=== PATIENT | female | born 1975 ===

== ENCOUNTER 2016-11-30 14:02 | Inpatient (IN) | payer MEDICAID, OTHER ==
[2016-11-30 16:05] VITALS: BMI 36.8
[2016-11-30] MEDS ORDERED: DINOPROSTONE 10 MG SUP VG ONE ×2 (17:25→21:12)
--- NOTE | 2016-11-30 17:35 | PDOC36 ---
Provider Note Note: cc: Admission H&P HPI: 41 y.o. year old BALDEMAR 11/29/2016, by Last Menstrual Period at 40w1d here for IOL for AMA. REVIEW OF SYSTEMS GENERAL:~ No fever or headache EYES:~ No double or blurry vision. CARDIOVASCULAR:~ No chest pain. RESPIRATORY:~ No severe shortness of breath or cough. GASTROINTESTINAL:~ No nausea or vomiting or right upper quadrant pain.~ PSYCHIATRIC:~ No anxiety or depression. PROBLEMS Term AMA Anemia Obesity OB HISTORY #: 1, Date: 11/29/06, Sex: Male, Weight: 2.722 kg (6 lb), GA: 40w0d, Delivery: Vaginal, Spontaneous Delivery, Apgar1: None, Apgar5: None, Living: Yes, Comments : None #: 2, Date: 08/2010, Sex: Unknown, Weight: None, GA: 4w0d, Delivery: Spontaneous , Apgar1: None, Apgar5: None, Living: Demise, Comments : D&C #: 3, Date: 04/21/11, Sex: Female, Weight: 3.175 kg (7 lb), GA: 40w0d, Delivery : Vaginal, Spontaneous Delivery, Apgar1: None, Apgar5: None, Living: Yes, Comments: DFOB #: 4, Date: 06/22/12, Sex: Male, Weight: 3.175 kg (7 lb), GA: 40w0d, Delivery: Vaginal, Spontaneous Delivery, Apgar1: None, Apgar5: None, Living: Yes, Comments : None #: 5, Current PSH No past surgical history on file. SOC HX Reports that she has never smoked. She has never used smokeless tobacco. She reports that she does not drink alcohol or use illicit drugs. ALL No Known Allergies MEDICATIONS ~ Calcium Carb-Cholecalciferol (CALCIUM-VITAMIN D) 600-400 MG-UNIT tablet, Calcium-Vitamin D (calcium-vitamin D) 600 mg-400 units, oral tablet. 1 tablet(s ) DAILY #100, 2 Refills. GUSTAVO WEIR. Chronic, Disp: , Rfl:~ PHYSICAL EXAMINATION VITAL SIGNS:~ AFVSS Estimated body mass index is 36.86 ~ Weight as of 11/27/16: 77.5 kg (170 lb 13.7 oz). Total weight gain is -4.148 kg (-9 lb 2.3 oz) FHT:~ 150s moderate variability with accels and late decels category II [place]:~ Intermittent contractions SVE:~ 1-2/Thick/High GENERAL:~ No distress CARDIOVASCULAR:~ Regular rate and rhythm, no murmur, JVD or pedal edema. RESPIRATORY:~ Clear to auscultation bilaterally, respiratory effort is nonlabored at rest. GASTROINTESTINAL:~ Gravid no fundal tenderness NEUROLOGIC:~ Deep tendon reflexes are 2+ in the knees.~ Cranial nerves II-XII are grossly intact. PSYCHIATRIC:~ Alert and oriented x3, judgement and memory is intact, mood is pleasant. LABS & STUDIES B+ Antibody- Rubella Immune Hep B- HIV- GC/Chlamydia- Trep- Hgb 11.5 GBS Negative ULTRASOUNDS 24 wk - c/w lmp. male. normal survey. post placenta, no previa. grade 1, subj normal fluid. 30 wk - post placenta w/o previa. growth nl. amniotic fluid nl. detailed anatomy nl but incomplete due to limitation of gestational age and position. patient declined additional testing. ASSESSMENT 41 y.o. year old BALDEMAR 11/29/2016, by Last Menstrual Period at 40w1d with AMA PLAN AMA: Admit for IOL, SVE is 1-2/thick/high, will start cervidil induction tonight and follow closely. Alejandro Kincaid MD MPH
[2016-11-30] MEDS ORDERED: IV START KIT ONE (18:05)
[2016-11-30] MEDS ORDERED: LACTATED RINGERS 1,000 ML ONE (18:05)
[2016-11-30 18:46] LABS: HEMATOCRIT 32.2 % (37.0-47.0); HEMOGLOBIN 10.6 gm/l (12.0-16.0); MEAN CELL VOLUME 83.9 fl (81.0-99.0); MEAN CORPUSCULAR HEMOGLOBIN 27.6 pg (27.0-31.0); MEAN CORPUSCULAR HGB CONC 32.9 g/dl (33.0-37.0); RED CELL DISTRIBUTION WIDTH 13.9 % (11.5-14.5)
[2016-11-30] MEDS ORDERED: OXYTOCIN 10 UNITS/ML VIAL ONE (21:22)
[2016-11-30] MEDS ORDERED: LIDOCAINE Viscous 2% 15 ML UDCUP ONE (21:22)
[2016-11-30] MEDS ORDERED: LIDOCAINE 1% (PRES FREE) 30 ML VIAL ONE (21:22)
[2016-11-30] MEDS ORDERED: MINERAL OIL 25 ML BOT ONE (21:22)
[2016-11-30] MEDS ORDERED: PUMP TUBING ONE (21:23)
[2016-11-30] MEDS ORDERED: OXYTOCIN IN LR 500 ML IV ONE ×2 (21:23→21:50)
[2016-12-01] MEDS: LACTATED RINGERS 1,000 ML IV PRN ×3 (00:32→05:20)
[2016-12-01] MEDS: FENTANYL 100 MCG/2 ML VIAL IV PRN ×2 (01:41→04:27)
[2016-12-01] MEDS ORDERED: FENTANYL/ROPIVACAINE EPIDURAL 250 ML EP ONE (06:57)
[2016-12-01] MEDS ORDERED: EPIDURAL PUMP SET ONE (06:57)
[2016-12-01] MEDS ORDERED: EPIDURAL PROCEDURE TRAY ONE (07:15)
[2016-12-01] MEDS ORDERED: EPHEDRINE SULFATE 50 MG/ML 1ML VIAL IV PRN (07:40)
[2016-12-01] MEDS ORDERED: NALOXONE HCL 0.4 MG/ML VIAL IV PRN (07:40)
[2016-12-01] MEDS ORDERED: DIPHENHYDRAMINE HCL 50 MG/1 ML VIAL IV PRN (07:40)
[2016-12-01] MEDS ORDERED: ONDANSETRON 4 MG/2ML 2 ML VIAL IV PRN (07:40)
[2016-12-01] MEDS ORDERED: LACTATED RINGERS 500 ML IV PRN (07:40)
[2016-12-01] MEDS ORDERED: METOCLOPRAMIDE HCL 5 MG/ML 2ML VIAL IV PRN (07:40)
[2016-12-01] MEDS ORDERED: SODIUM CHLORIDE 0.9% 500 ML IV PRN (07:40)
[2016-12-01] MEDS ORDERED: NALBUPHINE HCL 20 MG/ML AMP IV PRN (07:40)
[2016-12-01] MEDS ORDERED: LACTATED RINGERS 1,000 ML IV SCH (07:40)
[2016-12-01] MEDS ORDERED: BENZOCAINE/MENTHOL 60 APPLIC/BOT TP PRN (08:14)
[2016-12-01] MEDS ORDERED: HYDROCODONE/ACETAMINOPHEN 5/325MG TABLET PO PRN (08:14)
[2016-12-01] MEDS ORDERED: MAGNESIUM HYDROXIDE 30 ML UDCUP PO PRN (08:14)
[2016-12-01] MEDS ORDERED: CALCIUM CARBONATE 500 MG TAB.CHEW PO PRN (08:14)
[2016-12-01] MEDS ORDERED: DOCUSATE SODIUM 100 MG CAPSULE PO PRN (08:14)
[2016-12-01] MEDS ORDERED: LANOLIN 50 APPLIC/7G TUBE TP PRN (08:14)
[2016-12-01] MEDS ORDERED: FENTANYL/ROPIVACAINE EPIDURAL 250 ML EP SCH (08:19)
--- NOTE | 2016-12-01 09:15 | PCMDEL ---
Delivery Note - Labor 1st stage (hr/min):: [id number] 2nd stage (hr/min):: 4 min 3rd stage (hr/min):: 7 min Total (hr/min):: [id number] Pushed (hr/min):: 4 min - Delivery Delivery (Date): 12/01/16 Delivery (Time): 07:41 Infant Gender: Male Length: 52.07 cm Presentation: Cephalic Position: OA Umbilical Cord: 3 Vessel Delayed Cord Clamping:: 2-3 min Placenta:: wnl EBL:: 150 Perineum:: 1st degree preineal. Suture:: 4-0 vicryl, in usual fashion. Epidural anesthesia was sufficient. Anesthesia/Meds:: epidural Length ROM:: 0 min, delivered in sac. Comments:: IOL for AMA, cervidil only. Was getting epidural when felt urge to push. Laid back down and was complete. Baby delivered encall, inside amniotic sac with clear fluid. No complications.
[2016-12-01] MEDS: IBUPROFEN 600 MG TABLET PO PRN ×2 (14:53→20:47)
[2016-12-02] MEDS: IBUPROFEN 600 MG TABLET PO PRN ×2 (02:46→09:02)
[2016-12-02 06:44] LABS: HEMOGLOBIN 9.1 gm/l (12.0-16.0)
[2016-12-02 08:14] VITALS: BP 86/52
--- NOTE | 2016-12-02 12:18 | PDOC44 ---
- Subjective Day: 1 doing well. Reports Pain Tolerable, Reports , Reports Lochia Light, Reports Tolerating Regular Diet, Denies Nausea, Denies Fever - Objective Temp Pulse Resp BP Pulse Ox 98.3 F 80 16 86/52 12/02/16 07:55 12/02/16 07:55 12/02/16 07:55 12/02/16 07:55 Lab Results 12/02/16 06:10 Hgb 9.1 L Hct 28.0 L Current Medications Generic Name Dose Route Start Last Admin Trade Name Freq PRN Reason Stop Dose Admin Acetaminophen/Hydrocodone Bitart 1 - 2 tab 12/01/16 08:14 [place] 5/325 PO Q4H PRN Pain (Moderate) Benzocaine/Menthol 1 applic 12/01/16 08:14 Dermoplast TP PRN PRN Patient Comfort Calcium Carbonate/Glycine 500 - 1,000 mg 12/01/16 08:14 Tums PO BID PRN Indigestion Diphenhydramine HCl 25 - 50 mg 12/01/16 07:40 Benadryl IV Q4H PRN Itching Docusate Sodium 100 mg 12/01/16 08:14 Colace PO DAILY PRN Comfort Emollient Ointment 1 applic 12/01/16 08:14 Adz-A-Xltyzg TP PRN PRN sore nipples Ephedrine Sulfate 10 mg 12/01/16 07:40 Ephedrine Sulfate IV Q5M PRN Ferrous Sulfate 325 mg 12/02/16 21:00 Ferrous Sulfate PO BID LIZBET Ropivacaine/Fentanyl/NS 250 mls @ 0 mls/hr 12/01/16 08:19 Fentanyl 2 Mcg/Ml + Ropivacaine 0.125% Ep Bag EP EPI LIZBET Protocol Per Protocol Sodium Chloride 500 mls @ 500 mls/hr 12/01/16 07:40 Sodium Chloride 0.9% IV .Q1H PRN SBP < 90 mmHG Lactated Ringer's 500 mls @ 500 mls/hr 12/01/16 07:40 Lactated Ringers IV .Q1H PRN SBP < 90 mmHG Ibuprofen 600 mg 12/01/16 08:14 12/02/16 09:02 Motrin PO 600 mg Q6H PRN Administration Pain (Mild) Magnesium Hydroxide 30 ml 12/01/16 08:14 Milk Of Magnesia PO BEDTIME PRN Constipation Metoclopramide HCl 10 mg 12/01/16 07:40 Reglan IV Q6H PRN Nalbuphine HCl 1 - 5 mg 12/01/16 07:40 Nubain IV Q4H PRN Itching Naloxone HCl 0.2 - 0.4 mg 12/01/16 07:40 Narcan IV Q5M PRN Ondansetron HCl 4 mg 12/01/16 07:40 Zofran IV Q6H PRN Nausea Sodium Chloride 10 ml 11/30/16 17:25 12/01/16 04:27 Normal Saline 10ml Flush IV 10 ml PRN PRN Administration IV Flush - Physical Exam General: Afebrile Psych/Mental Status: Mood/Affect Appropriate, Judgment/Insight Intact, Bonding Well Neurological: Grossly Intact, Alert HEENT: Atraumatic, EOMI Lungs: Clear to Auscultation Bilaterally, Normal Air Movement Cardiovascular: Regular Rate and Rhythm, Normal S1, Normal S2, No Murmur Fundus: Firm, Midline, Below Umbilicus - Problems:Assessment/Plan (1) Normal vaginal delivery Status: AcuteAssessment/Plan: PPD#1, doing well Routine pp care support for Stable for dc home today Disposition: Stable, Anticipate DC to Home
[2016-12-02] MEDS ORDERED: FERROUS SULFATE (65 Fe) 325 MG TABLET PO SCH (21:00)
== END 2016-12-02 14:51 | disposition home or self-care (01) | DRG 775 ==
LOC: FBC 14:02 → FBCOUT 14:02 → FBC 17:29 → FBCOUT 17:29
PROVIDERS: ADMIT Family Medicine; ATTEND Family Medicine
PROC: 3E0P7GC Introduction of Other Therapeutic Substance into Female Reproductive, Via Natural or Artificial Opening (ICD-10-PCS; 2016-11-30)
PROC: 10E0XZZ Delivery of Products of Conception, External Approach (ICD-10-PCS; principal; 2016-12-01)
PROC: 0HQ9XZZ Repair Perineum Skin, External Approach (ICD-10-PCS; 2016-12-01)
DX: O70.0 First degree perineal laceration during delivery (principal); O09.523 Supervision of elderly multigravida, third trimester; O99.02 Anemia complicating childbirth; D64.9 Anemia, unspecified; O99.214 Obesity complicating childbirth; E66.9 Obesity, unspecified; Z3A.40 40 weeks gestation of pregnancy; Z37.0 Single live birth